=== PATIENT | female | born 1955 | race African-American/Black ===

== ENCOUNTER → 2016-09-23 | Outpatient (CLI) | payer BC ==
--- NOTE | 2016-09-24 08:57 | KCIC ---
Bilateral digital screening mammograms with CAD: HISTORY Routine screening. COMPARISON Comparison is made to previous studies dated 12/05/2014 and 10/19/2013. FINDINGS Breast density category C. The skin and nipples show no abnormalities. No abnormal lymph nodes are seen in the axilla. The breast parenchyma shows heterogeneous density. There are no dominant masses, suspicious calcifications or architectural distortions. Benign appearing calcifications are present. IMPRESSION No evidence of malignancy. Recommend routine annual mammographic screening. This study was interpreted with the benefit of Computerized Aided Detection (CAD). Mammography is not 100% sensitive in detecting breast cancer. Therefore, a self breast exam and a clinical breast exam are very important. A negative mammogram does not negate a clinically suspicious finding and should not result in a delay in biopsying a clinically suspicious abnormality. BI-RADS category 2. Benign. This patient's information has been entered into a reminder system for the patient to be notified with the results of this examination and a target date for her next mammograms. Electronically signed by: Luz Stanley MD (Sep 24, 2016 08:55:31)
== END | disposition home or self-care (01) ==
LOC: KCIC MAMMO 15:10
PROVIDERS: ATTEND Internal Medicine
DX: Z12.31 Encounter for screening mammogram for malignant neoplasm of breast (principal)
CPT/HCPCS: 77052; G0202; 77067

== ENCOUNTER → 2016-09-28 | Outpatient (CLI) | payer BC ==
--- NOTE | 2016-09-28 14:22 | KCIC ---
PROCEDURE Right upper extremity venous Doppler dated 09/28/2016. HISTORY Arm pain with superficial lungs. Possible DVT. TECHNIQUE Grayscale, color flow and spectral waveform analysis performed. COMPARISON FINDINGS Normal compressibility, phasicity and augmentation of flow throughout. No filling defects are seen. IMPRESSION No evidence of right upper extremity deep vein thrombosis. Electronically signed by: Mohan Holland (Sep 28, 2016 14:21:24)
== END | disposition home or self-care (01) ==
LOC: KCIC US 13:17
PROVIDERS: ATTEND Internal Medicine
DX: I82.611 Acute embolism and thrombosis of superficial veins of right upper extremity (principal)
CPT/HCPCS: 93971

== ENCOUNTER → 2018-08-10 | Outpatient (CLI) | payer BC ==
--- NOTE | 2018-08-10 10:07 | KCIC ---
Bilateral digital screening mammograms with 3-D tomosynthesis: Reason for examination: Routine screening. Comparison is made to previous studies dated 09/23/2016 and 12/05/2014. Bilateral mammograms in CC and oblique projections were obtained with 2-D imaging and 3-D tomosynthesis imaging on a Siemens Inspiration unit and reviewed on the workstation. Interpretation was made with the benefit of CAD. The skin and nipples show no abnormalities. No abnormal axillary lymph nodes are seen. The breast parenchyma is extremely dense. (Breast density: Category D.) There are no dominant masses, suspicious calcifications or architectural distortion. Benign calcifications are seen on the right. Impression: No evidence of malignancy. Recommend routine screening. Your patient's mammogram demonstrates that she has dense breast tissue (breast density category C or D), which could hide abnormalities, and if she has other risk factors for breast cancer that have been identified, she might benefit from supplemental screening tests that may be suggested by you as her ordering physician. Dense breast tissue, in and of itself, is a relatively common condition. Therefore, this information is not provided to cause undue concern, but rather to raise your awareness and to promote discussion with your patient regarding the presence of other risk factors, in addition to dense breast tissue. Your patient's mammography results will be sent to her. BI-RAD Category 2: Benign. "Our facility is accredited by the [employer] Mammography [employer]." This patient's information has been entered into a reminder system for the patient to be notified with the results of her examination and a target date for the next mammogram. Electronically signed by: Camila Stanley MD (08/10/2018 10:03 AM) [id number]
== END | disposition home or self-care (01) ==
LOC: KCIC MAMMO 08:55
DX: Z12.31 Encounter for screening mammogram for malignant neoplasm of breast (principal)
CPT/HCPCS: 77063; 77067

== ENCOUNTER 2019-08-14 18:22 | Emergency (ER) | payer BC, OTHER ==
[~2019-08-14] VITALS: Ht 162.6 cm; Wt 64.0 kg
[2019-08-14 21:00] VITALS: BP 134/66
--- NOTE | 2019-08-14 21:13 | RAD ---
Exam: Left lower extremity venous duplex study INDICATION: Leg swelling TECHNIQUE: Using a combination of real-time ultrasound imaging and color-flow and pulse Doppler imaging techniques along with graded compression and augmentation, duplex evaluation of the deep venous systems of leftlower extremity was performed. Multiple images were obtained. Findings: There is no sonographic evidence for deep venous thrombosis involving the visualized deep venous structures of the left lower extremity. Small Lockett's cyst is noted. IMPRESSION: No acute DVT in the left lower extremity Electronically signed by: Homar Mckeon MD (08/14/2019 9:10 PM) [facility] [place]
[2019-08-14] MEDS ORDERED: HYDROcodone/APAP 5/325MG 1 TAB TABLET PO ONE (21:15)
[2019-08-14] MEDS ORDERED: HYDR-2163 PO (22:18)
--- NOTE | 2019-08-14 22:19 | PHYS DOC ---
Past Medical History Past Medical History: CVA, Other Additional Past Medical Histor: L WRIST FX; L SHOULDER FX; R FOOT TOE FUSION; R LEG PARTIAL PARALYSIS Past Surgical History: Hysterectomy Alcohol Use: Occasionally Drug Use: None Adult General Chief Complaint Chief Complaint: LOWER EXT PAIN HPI HPI Patient is a 63 year old -[place] female presents acute onset left lateral leg pain, tenderness several hours prior to ED arrival. Patient was sitting at her desk at work when symptoms began. Reports increased pain tenderness swelling with with ambulation since that time. Denies lower repetitive strain injury. No chest pain, shortness of breath. Denies history of DVT or PE. Denies left knee osteoarthritis. No other acute symptoms or complaints. [] Review of Systems Review of Systems Review symptoms as per history of present illness. All other review symptoms are negative. Current Medications Current Medications Current Medications Medications (Trade) Dose Ordered Sig/Zenia Start Time Stop Time Status Last Admin Dose Admin Acetaminophen/ Hydrocodone Bitart (Lortab 5/325) 1 tab 1X ONCE 08/14/19 21:15 08/14/19 21:16 DC 08/14/19 21:00 1 TAB Allergies Allergies Allergies Uncoded Allergies Type Severity Reaction Last Updated Verified iv contrast Allergy Severe 08/14/19 Physical Exam Physical Exam Constitutional: Well developed, well nourished, no acute distress, non-toxic appearance. [] HENT: Normocephalic, atraumatic, bilateral external ears normal, oropharynx moist, no oral exudates, nose normal. [] Eyes: PERRLA, EOMI, conjunctiva normal, no discharge. [] Neck: Normal range of motion, no tenderness, supple, no stridor. [] Cardiovascular:Heart rate regular rhythm, no murmur [] Extremities: Left lower extremity, tenderness swelling left lateral and posterior leg. Positive Homans signs. Popliteal and pedal pulses pulses 2+ and symmetric bilaterally. [] Neurologic: Alert and oriented X 3, normal motor function, normal sensory function, no focal deficits noted. [] Psychologic: Affect normal, judgement normal, mood normal. [] Current Patient Data Vital Signs Vital Signs Date Time Temp Pulse Resp B/P (MAP) Pulse Ox O2 Delivery O2 Flow Rate FiO2 08/14/19 21:00 68 22 134/66 (88) 100 Room Air 08/14/19 19:50 97.7 97.7 EKG EKG [] Radiology/Procedures Radiology/Procedures [Left lower extremity: venous doppler ultrasound: No findings of DVT. Course & Med Decision Making Course & Med Decision Making Pertinent Labs and Imaging studies reviewed. (See chart for details) [Recommend supportive care with PCP follow-up. Return precautions reviewed.] Kuamr Disclaimer Dragon Disclaimer This electronic medical record was generated, in whole or in part, using a voice recognition dictation system. Departure Departure Impression: Primary Impression: Left leg swelling Additional Impression: Popliteal cyst Disposition: HOME, SELF-CARE Condition: GOOD Referrals: MAGALY HINKLE MD (PCP) Patient Instructions: Lockett's Cyst Additional Instructions: Please take ibuprofen for pain and hydrocodone as needed for additional relief. Keep leg elevated at rest and use walker for assisted ambulation. Follow up with your PCP in 2-3 days for reevaluation. Scripts Hydrocodone Bit/Acetaminophen (HYDROCODONE-APAP 5-300) 1 Each Tablet 1 TAB PO PRN TID PRN for pain MDD 3 Tablet(s) for 5 Days, #15 TAB 0 Refills Prov: DORENE ORDOÑEZ DO 08/14/19 Problem Qualifiers DORENE ORDOÑEZ DO Aug 14, 2019 22:19
== END 2019-08-14 22:52 | disposition home or self-care (01) ==
LOC: ER 18:22
DX: M71.22 Synovial cyst of popliteal space [Baker], left knee (principal); M79.605 Pain in left leg; Z90.710 Acquired absence of both cervix and uterus; Z86.73 Personal history of transient ischemic attack (TIA), and cerebral infarction without residual deficits; Z91.041 Radiographic dye allergy status
CPT/HCPCS: 93971; 99284-25